=== PATIENT | male | born 1990 | race American Indian/Alaskan Native ===

== ENCOUNTER 2016-05-08 09:24 | Emergency (ER) | payer MEDICARE ==
[2016-05-08 09:38] VITALS: BP 140/86
[2016-05-08] MEDS ORDERED: MOTRIN PO ONE (10:44)
--- NOTE | 2016-05-08 10:51 | Emergency Department Report ---
- General Chief complaint: Skin/Abscess/Foreign Body Stated complaint: INGROWN HAIR /BOTH UNDERARM/THIGH Time Seen by Provider: 05/08/16 10:23 Source: patient Mode of arrival: Ambulatory Limitations: No Limitations - History of Present Illness Initial comments: 25-year-old -Citizen Of [place] male comes from [place] for treatment of his psychosis and drug abuse reports that he has bullous ingrown hairs under both of his axillary. Patient reports that he was placed on Sept[facility] but since he was transferred to the [facility] he has not had his dose of antibiotics. He reports that the boils under both axillary are tender and nondraining. He denies any fever or chills no nausea no vomiting. Severity scale (0 -10): 10 Quality: burning Consistency: intermittent Associated symptoms: denies other symptoms Treatments Prior to Arrival: antibiotic - Related Data Previous Rx's Medication Instructions Recorded Last Taken Type Ibuprofen [Motrin 800 MG tab] 800 mg PO Q8HR PRN #30 tablet 05/08/16 Unknown Rx Mupirocin [Bactroban 2% CREAM] 1 applicatio TP TID #1 cream 05/08/16 Unknown Rx Sulfamethoxazole/Trimethoprim 1 each PO BID #20 tablet 05/08/16 Unknown Rx [Bactrim DS TAB] Allergies Allergy/AdvReac Type Severity Reaction Status Date / Time morphine Allergy Shortness Verified 05/08/16 09:34 of Breath Penicillins Allergy Hives Verified 05/08/16 09:34 Abscess Boil HPI - HPI Chief Complaint: Skin/Abscess/Foreign Body Stated Complaint: INGROWN HAIR /BOTH UNDERARM/THIGH Time Seen by Provider: 05/08/16 10:23 Home Medications: Previous Rx's Medication Instructions Recorded Last Taken Type Ibuprofen [Motrin 800 MG tab] 800 mg PO Q8HR PRN #30 tablet 05/08/16 Unknown Rx Mupirocin [Bactroban 2% CREAM] 1 applicatio TP TID #1 cream 05/08/16 Unknown Rx Sulfamethoxazole/Trimethoprim 1 each PO BID #20 tablet 05/08/16 Unknown Rx [Bactrim DS TAB] Allergies/Adverse Reactions: Allergies Allergy/AdvReac Type Severity Reaction Status Date / Time morphine Allergy Shortness Verified 05/08/16 09:34 of Breath Penicillins Allergy Hives Verified 05/08/16 09:34 ED Review of Systems ROS: Stated complaint: INGROWN HAIR /BOTH UNDERARM/THIGH Other details as noted in HPI ED Past Medical Hx - Past Medical History Previous Medical History?: Yes Hx Psychiatric Treatment: Yes (drug use, psychosis) - Surgical History Past Surgical History?: No - Social History Smoking Status: Current Every Day Smoker Substance Use Type: Alcohol, Marijuana - Medications Home Medications: Home Medications Medication Instructions Recorded Confirmed Last Taken Type Ibuprofen [Motrin 800 MG tab] 800 mg PO Q8HR PRN #30 tablet 05/08/16 Unknown Rx Mupirocin [Bactroban 2% CREAM] 1 applicatio TP TID #1 cream 05/08/16 Unknown Rx Sulfamethoxazole/Trimethoprim 1 each PO BID #20 tablet 05/08/16 Unknown Rx [Bactrim DS TAB] ED Physical Exam - General Limitations: No Limitations - Head Head exam: Present: atraumatic, normocephalic - Eye Eye exam: Present: normal appearance - ENT ENT exam: Present: normal exam - Skin Skin exam: Present: warm, dry, erythema - Expanded Skin Exam Expanded Description of rash: Present: size (quarter size right axillary, left axillary several open wounds), tenderness, erythematous, indurated. Absent: blisters, fluctuant ED Course Vital Signs 05/08/16 09:34 Temperature 98.7 F Pulse Rate 116 H Respiratory 20 Rate Blood Pressure 140/86 O2 Sat by Pulse 100 Oximetry - I & D Right Arm Blade Size: 11 I & D Procedure: betadine prep, sterile drapes applied, sterile dressing applied Progress: Recent tolerated procedure well ED Medical Decision Making - Medical Decision Making Patient was evaluated by his provider in fast track. Will apply warm compresses to attempt to do an I and D not much discharge. Patient was given Tylenol for pain I will refill his Bactrim since he has 8 days left and is not sure where the prescription is. I will also will give him ibuprofen for pain management. Patient is to reevaluated in 3-4 days. Critical care attestation.: If time is entered above; I have spent that time in minutes in the direct care of this critically ill patient, excluding procedure time. ED Disposition Clinical Impression: Cellulitis of axilla, right Disposition: DISCHARGED TO HOME OR SELFCARE Is pt being admited?: No Does the pt Need Aspirin: No Condition: Stable Instructions: Cellulitis (ED) Additional Instructions: Please take antibiotics as prescribed. Please keep the area clean and dry. Please use the antibiotic cream to the open wounds. Very important for you to follow up in 3-5 days. Very important for you to use warm compresses under the right axillary. Prescriptions: Ibuprofen [Motrin 800 MG tab] 800 mg PO Q8HR PRN #30 tablet PRN Reason: Pain Mupirocin [Bactroban 2% CREAM] 1 applicatio TP TID #1 cream Sulfamethoxazole/Trimethoprim [Bactrim DS TAB] 1 each PO BID #20 tablet Referrals: PRIMARY CARE, [Primary Care Provider] - 3-5 Days Forms: Work/School Release Form(ED)
== END 2016-05-08 11:35 | disposition home or self-care (01) ==
LOC: ED 09:24
DX: L03.111 Cellulitis of right axilla (principal); F29 Unspecified psychosis not due to a substance or known physiological condition; Z88.0 Allergy status to penicillin; Z88.5 Allergy status to narcotic agent